=== PATIENT | male | born 1975 | race Caucasian/White ===

== ENCOUNTER → 2023-12-30 08:51 | Outpatient (REF) | payer OTHER, SELFPAY ==
[2023-12-31 00:23] LABS: IgA 185 mg/dl (70-400); IgG 1075 mg/dl (700-1600); IgM 92 mg/dl (40-230)
[2024-01-01 00:53] LABS: IgG Subclass 1 571 mg/dL (240-1118); IgG Subclass 2 231 mg/dL (124-549); IgG Subclass 3 52 mg/dL (21-134); IgG Subclass 4 32 mg/dL (1-123)
[2024-01-01 16:23] LABS: Alternaria tenuis <0.10 kU/L (<=0.34); Aspergillus fumigatus <0.10 kU/L (<=0.34); Bermuda Grass <0.10 kU/L (<=0.34); Birch Tree <0.10 kU/L (<=0.34); Box Elder/Maple Tree <0.10 kU/L (<=0.34); Cat Epithelium/Dander <0.10 kU/L (<=0.34); Common Pigweed <0.10 kU/L (<=0.34); Common/Short Ragweed <0.10 kU/L (<=0.34); Cottonwood Tree <0.10 kU/L (<=0.34); Dermatophagoides farinae 0.11 kU/L (<=0.34); Dermatophagoides pteronyssinus 0.12 kU/L (<=0.34); Dog Dander <0.10 kU/L (<=0.34); Elm Tree <0.10 kU/L (<=0.34); German Cockroach 0.31 kU/L (<=0.34); Hormodendrum <0.10 kU/L (<=0.34); IgE 50 kU/L (<=214); Mountain Cedar Tree <0.10 kU/L (<=0.34); Mouse Epithelium <0.10 kU/L (<=0.34); Mucor racemosus <0.10 kU/L (<=0.34); Mugwort Weed <0.10 kU/L (<=0.34); Oak Tree <0.10 kU/L (<=0.34); Penicillium notatum <0.10 kU/L (<=0.34); Sheep Sorrel Weed <0.10 kU/L (<=0.34); Sycamore Tree <0.10 kU/L (<=0.34); Timothy Grass <0.10 kU/L (<=0.34); Walnut Tree <0.10 kU/L (<=0.34); White Ash Tree <0.10 kU/L (<=0.34); White Mulberry Tree <0.10 kU/L (<=0.34)
== END ==
LOC: REG 08:51
PROVIDERS: ATTENDING PHYSICIAN Internal Medicine Critical Care Medicine
DX: R05.3 Chronic cough (principal); J45.991 Cough variant asthma
CPT/HCPCS: 36415; 71046; 82784; 82785; 82787; 86003

== ENCOUNTER 2024-10-17 22:09 | Emergency (ER) | payer OTHER, SELFPAY ==
[2024-10-17 22:13] VITALS: BP 148/105
[2024-10-17 22:40] LABS: % Basophils 0.4 % (0-2); % Eosinophils 0.7 % (0-6); % Lymphocytes 31.8 % (20.5-51.1); % Monocytes 7.8 % (1.7-9.3); % Neutrophils 59.3 % (42.2-75.2); Absolute Eosinophils 0.1 10^3/uL (0-0.7); Absolute Lymphocytes 2.1 10^3/uL (1.2-3.4); Absolute Monocytes 0.5 10^3/uL (0.1-0.6); Hematocrit 42.1 % (39.0-52.0); Hemoglobin 14.8 g/dL (13.0-18.0); Mean Corp Hgb Conc. 35.2 g/dL (33.0-37.0); Mean Corpuscular Hgb 31.6 pg (27.0-31.0); Mean Platelet Volume 8.9 fL (7.4-10.4); Nucleated Red Blood Cells % 0 % (-); Platelet Count 264 10^3/uL (130-400); Red Blood Cell Count 4.68 10^6/uL (4.70-6.10); Red Cell Dist. Width 12.1 % (11.5-14.5); White Blood Cell Count 6.7 10^3/uL (4.8-10.8)
[2024-10-17 22:44] LABS: Urine Albumin 1+ (Neg - Trace); Urine Bilirubin Negative (Negative); Urine Character Clear (Clear); Urine Color Yellow; Urine Glucose Negative (Negative); Urine Ketone Negative (Negative); Urine Leukocyte Negative (Negative); Urine Nitrite Negative (Negative); Urine Occult Blood 4+ (Negative); Urine Specific Gravity 1.025 (<1.030); Urine Urobilinogen Negative (Neg - 1+)
[2024-10-17 22:52] LABS: Urine Bacteria Few (Negative); Urine Mucus Many; Urine Red Blood Cell 50-60 /HPF (0-2)
[2024-10-17 22:56] LABS: ALT (SGPT) 42 U/L (0-50); AST (SGOT) 32 U/L (17-59); Albumin 4.7 g/dl (3.5-5.0); Alkaline Phosphatase 47 U/L (38-126); Blood Urea Nitrogen 14 mg/dl (9-20); Carbon Dioxide 28 mmol/L (22-30); Chloride 103 mmol/L (98-107); Glucose 111 mg/dl (70-99); Potassium 4.4 mmol/L (3.5-5.1); Sodium 140 mmol/L (135-145); Total Bilirubin 0.8 mg/dl (0.2-1.3); Total Protein 7.4 g/dl (6.3-8.2); eGFR > 60.00
[2024-10-17] MEDS: TORADOL 15 MG IV (23:15)
[2024-10-17] MEDS: NSS 1000 IV (23:19)
[2024-10-17 23:33] VITALS: BMI 26.5
--- NOTE | 2024-10-17 23:44 | ED.GENMED ---
History of Present Illness
General
Chief Complaint: Flank Pain
Source: patient
Exam Limitations: none
Time Seen by Provider: 10/17/24 22:46
Nursing documentation reviewed up to this point in time: agreed with
History of Present Illness
History of Present Illness:
49-year-old male presenting to the emergency department today with concerns of right-sided flank discomfort associated nausea started earlier today with somewhat abrupt intermittent seems to be slightly better when walking and moving. Denies
similar symptoms in the past. No changes in bowel movements. No fevers.
Past History
Past History
ED Past Medical History: None
ED Past Surgical History: None
Social History
Tobacco: Non-smoker
Review of Systems
Review of Systems
Allergies reviewed?: Yes
All Other Systems: ROS reviewed and negative except as documented in HPI and ROS
Phy Exam
Physical Exam
Physical Exam:
GENERAL: Alert , in no apparent distress
EYE: pupils equal and reactive
NECK: Supple, no significant adenopathy.
ENT: o/p clr, mmm.
CARDIAC: Regular rate and rhythm .
LUNGS: Clear breath sounds bilaterally, no acute respiratory distress, no wheezes/rales/rhonchi
ABDOMEN: Soft, without focal tenderness, no r/g, no cvat
NEUROLOGICAL: Alert and oriented, no focal neuro deficits
SKIN: Warm and dry, skin intact.
MUSCULOSKELETAL: No edema, well perfused.
PSYCH: Normal and appropriate interaction.
Course
Orders/Labs/Results
Orders:
Orders
10/17/24 22:19
Complete Blood Count/With Diff Urgent
Comprehensive Metabolic Panel Urgent
10/17/24 22:23
Urinalysis Urgent
Date Specimen was Collected: 10/17/24
Time Specimen was Collected: 22:11
Urine Microscopic Urgent
Date Specimen was Collected: 10/17/24
Time Specimen was Collected: 22:11
10/17/24 22:55
CT Abd/pel Without Iv Or Oral Urgent
Comment:
Reason For Exam: R flank pain
Ketorolac [Toradol] 15 mg IV NOW STA
10/17/24 22:56
0.9% Sodium Chloride 1000 ml [Nss] 1,000 ml IV BOLUS
Abnormal Lab Results
10/17/24 10/17/24
22:19 22:23
RBC 4.68 L 10^6/uL
(4.70-6.10)
MCH 31.6 H pg
(27.0-31.0)
Creatinine 1.4 H mg/dL
(0.7-1.3)
Glucose 111 H mg/dl
(70-99)
Urine Occult Blood 4+ A
(Negative)
Urine RBC 50-60 A /HPF
(0-2)
Urine Bacteria Few A
(Negative)
Urine Albumin 1+ A
(Neg - Trace)
10/17/24 22:19
10/17/24 22:19
Vital Signs
Initial and Last Documented VS:
Initial Vital Signs
Temp Pulse BP Pulse Ox
98.5 F 66 148/105 100
10/17/24 22:13 10/17/24 22:13 10/17/24 22:13 10/17/24 22:13
Last Documented Vital Signs
Temp Pulse Resp BP Pulse Ox
98.5 F 77 16 117/82 95
10/17/24 22:13 10/18/24 00:02 10/18/24 00:02 10/18/24 00:02 10/18/24 00:02
MDM/Problems Addressed
MDM/Problems Addressed:
49-year-old male presenting to the department today with concerns of flank discomfort intermittent today. Urinalysis with hematuria. Otherwise labs without emergent finding. Patient with complete resolution of symptoms here. CT scan showing a 3
mm stone likely in the bladder. Likely representing recently passed stone which does explain the patient's complete resolution of symptoms. Story seems to fit recently passed stone. No emergent findings otherwise. Stable for outpatient
management. Return precautions given.
*Critical Care Note
Total Time (30-74mins, 75-104mins- exclusive of procedures): Not Applicable
ED Attending Note
-
Portions of this chart may have been created with voice recognition software.� Occasional wrong word or��sound alike� substitutions may have occurred due to the inherent limitations of voice recognition software.
Discharge Plan
Departure
Patient Disposition: Home (Routine Discharge)
Date of Disposition: 10/18/24
Time of Disposition: 00:34
Patient with high blood pressure during this ER visit?: No
Condition: Good
Covid-19: Not Applicable
Discharge Problem:
Kidney stone
Instructions: Kidney Stones (DC)
Prescriptions:
No Action
amoxicillin-pot clavulanate 875-125 mg tablet
1 tab PO BID Qty: 14 0RF
Referrals:
Michael Trevizo MD [Active] - Follow up in 5-7 days
Augie Peralta DO [Family Provider] -
Activity Restrictions/Additional Instructions:
You came to the emergency department today with concerns of flank pain. This is likely related to a kidney stone. This appears to have passed on the CT scan. Please follow-up with urology as needed. Return for any worsening, new or concerning
symptoms.
Interventions
Interventions:
*Risk Screen - Suicide Last Done: 10/17/24 23:38
*General Assessment Last Done: 10/17/24 23:34
*Neglect/Abuse Screening Last Done: 10/17/24 23:26
*ED- Fall Risk Assessment Last Done: 10/17/24 23:26
*ED COVID-19 Vaccine History Last Done: 10/17/24 23:34
CH-Vpizgn-Vvsoixceeh Assessment Last Done: 10/17/24 23:24
ED-Male Genitourinary Assessment Last Done: 10/17/24 23:35
Discharge Date and Time
Print Language: MALAY
[2024-10-18 00:02] VITALS: BP 117/82
[2024-10-18 00:45] VITALS: BP 122/85
== END 2024-10-18 00:46 | disposition home or self-care (01) ==
LOC: EMR 22:09
PROVIDERS: Emergency Medicine; EMERGENCY PHYSICIAN Emergency Medicine; FAMILY PHYSICIAN Family Medicine
DX: N20.0 Calculus of kidney (principal)
CPT/HCPCS: 99284; 96374; 96361; 74176; 80053; 81003; 81015; 85025